=== PATIENT | male | born 1935 | race Caucasian/White ===

== ENCOUNTER 2017-12-20 09:50 | Emergency (ER) | payer OTHER ==
[~2017-12-20] VITALS: Ht 180.3 cm; Wt 80.0 kg
[~2017-12-20 09:50] MED LIST: ASPIRIN; ATENOLOL; LISINORIL; NITROGLYCERIN
[2017-12-20] MEDS ORDERED: ACETAMINOPHEN 325MG TABLET PO ONE (11:30)
[2017-12-20 12:15] VITALS: BP 144/75
== END 2017-12-20 13:07 | disposition home or self-care (01) ==
LOC: ER 10:00
DX: S69.91XA Unspecified injury of right wrist, hand and finger(s), initial encounter (principal); I10 Essential (primary) hypertension; W01.0XXA Fall on same level from slipping, tripping and stumbling without subsequent striking against object, initial encounter; Y93.89 Activity, other specified; Y92.89 Other specified places as the place of occurrence of the external cause; G35 Multiple sclerosis; E78.00 Pure hypercholesterolemia, unspecified; I48.91 Unspecified atrial fibrillation; Z79.82 Long term (current) use of aspirin; Z86.73 Personal history of transient ischemic attack (TIA), and cerebral infarction without residual deficits; Z88.5 Allergy status to narcotic agent
CPT/HCPCS: 73110; 99284

== ENCOUNTER 2017-12-27 15:51 | Emergency (ER) | payer OTHER ==
[~2017-12-27] VITALS: Ht 180.3 cm; Wt 90.0 kg
[2017-12-27 17:55] LABS: BASOPHILS % 0.5 % (0.0-2.0); EOSINOPHILS % 1.4 % (0.0-5.0); HEMATOCRIT. 40.5 % (42.0-52.0); HEMOGLOBIN. 13.8 g/dL (14.0-18.0); LYMPHOCYTES % 16.5 % (20.0-50.0); MEAN CORPUSCULAR HEMOGLOBIN 34.2 pg (28.0-32.0); MEAN CORPUSCULAR VOLUME 100.7 fL (80.0-94.0); MEAN PLATELET VOLUME 9.1 fl (7.4-10.4); MONOCYTES % 10.8 % (2.0-8.0); NEUTROPHILS % 70.8 % (40.0-76.0); PLATELET 251 x1000/uL (130-400); RED BLOOD CELL COUNT 4.02 mill/uL (4.7-6.1); RED CELL DISTRIBUTION WIDTH 16.4 % (11.6-14.6)
[2017-12-27 18:00] LABS: CHLORIDE 107 mEq/L (98-107)
[2017-12-27 18:56] VITALS: BP 158/85
== END 2017-12-27 21:07 | disposition home or self-care (01) ==
LOC: ER 15:51
DX: Z04.3 Encounter for examination and observation following other accident (principal); R41.0 Disorientation, unspecified; W01.0XXA Fall on same level from slipping, tripping and stumbling without subsequent striking against object, initial encounter; E78.00 Pure hypercholesterolemia, unspecified; F03.90 Unspecified dementia, unspecified severity, without behavioral disturbance, psychotic disturbance, mood disturbance, and anxiety; I48.91 Unspecified atrial fibrillation; Z88.5 Allergy status to narcotic agent; Z79.82 Long term (current) use of aspirin; Z86.73 Personal history of transient ischemic attack (TIA), and cerebral infarction without residual deficits
CPT/HCPCS: 36415; 70450; 80053; 82962; 85025; 99285

== ENCOUNTER 2018-04-01 16:10 | Emergency (ER) | payer OTHER ==
[~2018-04-01] VITALS: Ht 182.9 cm; Wt 91.0 kg
[2018-04-01] MEDS ORDERED: SODIUM CHLORIDE 0.9% 1,000 ML IV ONE (16:25)
[2018-04-01 17:19] LABS: BASOPHILS % 0.6 % (0.0-2.0); EOSINOPHILS % 2.1 % (0.0-5.0); HEMATOCRIT. 41.4 % (42.0-52.0); HEMOGLOBIN. 13.8 g/dL (14.0-18.0); MEAN CORPUSCULAR HEMOGLOBIN 34.2 pg (28.0-32.0); MEAN CORPUSCULAR VOLUME 102.6 fL (80.0-94.0); MEAN PLATELET VOLUME 9.3 fl (7.4-10.4); MONOCYTES % 13.8 % (2.0-8.0); NEUTROPHILS % 50.5 % (40.0-76.0); PLATELET 220 x1000/uL (130-400); RED BLOOD CELL COUNT 4.03 mill/uL (4.7-6.1)
[2018-04-01 17:23] LABS: CHLORIDE 111 mEq/L (98-107)
[2018-04-01 17:24] LABS: INR 1.1; PROTHROMBIN TIME 11.7 sec (9.4-11.6)
[2018-04-01 20:12] LABS: CLARITY URINE CLOUDY (CLEAR); COLOR URINE YELLOW (YELLOW); KETONES URINE TRACE (NEGATIVE); LEUKOCYTE ESTERASE URINE TRACE (NEGATIVE); NITRITE URINE NEGATIVE (NEGATIVE); OCCULT BLOOD URINE 1+ (NEGATIVE); PROTEIN URINE 2+ (NEGATIVE); UROBILINOGEN URINE 0.2 E.U./dL (0.2-1.0)
[2018-04-01 21:30] VITALS: BP 135/79
== END 2018-04-01 21:49 | disposition home or self-care (01) ==
LOC: ER 16:10 → ENRESERV 19:58 → CANRESERV 19:58 → CANBEDREQ 20:59 → ER 21:49
DX: R55 Syncope and collapse (principal); X30.XXXA Exposure to excessive natural heat, initial encounter; W18.39XA Other fall on same level, initial encounter; Y93.89 Activity, other specified; Y92.018 Other place in single-family (private) house as the place of occurrence of the external cause; Z88.5 Allergy status to narcotic agent
CPT/HCPCS: 36415; 71045; 80053; 81003; 83605; 83690; 83880; 84484; 85025; 85610; 93005; 96360; 96361; 99285; J7030

== ENCOUNTER 2018-08-31 09:16 | Emergency (ER) | payer OTHER ==
[~2018-08-31] VITALS: Ht 172.7 cm; Wt 85.0 kg
[2018-08-31] MEDS ORDERED: SODIUM CHLORIDE 0.9% 1,000 ML IV ONE (10:14)
[2018-08-31 10:21] LABS: BASOPHILS % 0.5 % (0.0-2.0); EOSINOPHILS % 1.2 % (0.0-5.0); HEMATOCRIT. 43.2 % (42.0-52.0); HEMOGLOBIN. 14.6 g/dL (14.0-18.0); LYMPHOCYTES % 27.7 % (20.0-50.0); MEAN CORPUSCULAR HEMOGLOBIN 35.1 pg (28.0-32.0); MEAN CORPUSCULAR VOLUME 103.9 fL (80.0-94.0); MEAN PLATELET VOLUME 9.6 fl (7.4-10.4); MONOCYTES % 8.1 % (2.0-8.0); NEUTROPHILS % 62.5 % (40.0-76.0); PLATELET 190 x1000/uL (130-400); RED BLOOD CELL COUNT 4.16 mill/uL (4.7-6.1); RED CELL DISTRIBUTION WIDTH 16.1 % (11.6-14.6)
[2018-08-31 10:26] LABS: CHLORIDE 110 mEq/L (98-107); INR 1.1; PROTHROMBIN TIME 10.7 sec (9.1-11.1)
[2018-08-31] MEDS ORDERED: ASPIRIN 325MG TABLET PO ONE (12:30)
[2018-08-31 12:32] LABS: CLARITY URINE CLEAR (CLEAR); COLOR URINE YELLOW (YELLOW); KETONES URINE NEGATIVE (NEGATIVE); LEUKOCYTE ESTERASE URINE 1+ (NEGATIVE); NITRITE URINE NEGATIVE (NEGATIVE); OCCULT BLOOD URINE TRACE (NEGATIVE); PROTEIN URINE 1+ (NEGATIVE); SPECIFIC GRAVITY URINE 1.011 (1.005-1.030); UROBILINOGEN URINE 0.2 E.U./dL (0.2-1.0)
[2018-08-31] MEDS ORDERED: ONDANSETRON HCL 4MG/2ML INJ IV ONE (13:30)
[2018-08-31 14:03] VITALS: BP 155/74
== END 2018-08-31 15:02 | disposition short-term general hospital (02) ==
LOC: ER 09:16 → CANBEDREQ 20:21
DX: R55 Syncope and collapse (principal); N28.9 Disorder of kidney and ureter, unspecified; I25.10 Atherosclerotic heart disease of native coronary artery without angina pectoris; G35 Multiple sclerosis; I25.2 Old myocardial infarction; E87.8 Other disorders of electrolyte and fluid balance, not elsewhere classified; E78.00 Pure hypercholesterolemia, unspecified; F03.90 Unspecified dementia, unspecified severity, without behavioral disturbance, psychotic disturbance, mood disturbance, and anxiety; I11.9 Hypertensive heart disease without heart failure; Z90.49 Acquired absence of other specified parts of digestive tract; Z88.5 Allergy status to narcotic agent; Z79.01 Long term (current) use of anticoagulants
CPT/HCPCS: 36415; 70450; 71045; 74176; 80053; 81003; 83605; 84484; 85025; 85610; 93005; 96361; 96374; 99285; J2405; J7030

== ENCOUNTER 2019-04-21 20:50 | Emergency (ER) | payer OTHER ==
[~2019-04-21] VITALS: Ht 185.4 cm; Wt 86.0 kg
[2019-04-21] MEDS ORDERED: SODIUM CHLORIDE 0.9% 1,000 ML IV ONE (22:21)
[2019-04-21 23:44] LABS: BASOPHILS % 0.6 % (0.0-2.0); EOSINOPHILS % 2.1 % (0.0-5.0); HEMATOCRIT. 41.3 % (42.0-52.0); HEMOGLOBIN. 14.1 g/dL (14.0-18.0); LYMPHOCYTES % 38.4 % (20.0-50.0); MEAN CORPUSCULAR HEMOGLOBIN 35.4 pg (28.0-32.0); MEAN CORPUSCULAR VOLUME 103.4 fL (80.0-94.0); MEAN PLATELET VOLUME 9.3 fl (7.4-10.4); NEUTROPHILS % 47.9 % (40.0-76.0); PLATELET 189 x1000/uL (130-400); RED BLOOD CELL COUNT 3.99 mill/uL (4.7-6.1)
[2019-04-21 23:48] LABS: CHLORIDE 108 mEq/L (98-107)
[2019-04-21 23:51] LABS: INR 1.1; PARTIAL THROMBOPLASTIN TIME 31.8 sec (23.4-31.0); PROTHROMBIN TIME 11.3 sec (9.6-11.0)
[2019-04-22] MEDS ORDERED: ASPIRIN 81MG TABLET PO ONE (01:15)
[2019-04-22 01:49] VITALS: BP 166/78
[2019-04-22 01:56] LABS: CLARITY URINE CLEAR (CLEAR); COLOR URINE YELLOW (YELLOW); KETONES URINE NEGATIVE (NEGATIVE); LEUKOCYTE ESTERASE URINE NEGATIVE (NEGATIVE); NITRITE URINE NEGATIVE (NEGATIVE); OCCULT BLOOD URINE NEGATIVE (NEGATIVE); PH URINE 6.5 (4.5-8.0); PROTEIN URINE TRACE (NEGATIVE); SPECIFIC GRAVITY URINE 1.008 (1.005-1.030); UROBILINOGEN URINE 0.2 E.U./dL (0.2-1.0)
== END 2019-04-22 03:00 | disposition short-term general hospital (02) ==
LOC: ER 20:50
DX: E86.0 Dehydration (principal); N28.9 Disorder of kidney and ureter, unspecified; R53.1 Weakness; R42 Dizziness and giddiness; I11.9 Hypertensive heart disease without heart failure; I25.2 Old myocardial infarction; E78.5 Hyperlipidemia, unspecified; E78.00 Pure hypercholesterolemia, unspecified; G35 Multiple sclerosis; Z90.49 Acquired absence of other specified parts of digestive tract; Z88.5 Allergy status to narcotic agent; Z79.82 Long term (current) use of aspirin; Z79.899 Other long term (current) drug therapy
CPT/HCPCS: 36415; 70450; 71045; 80053; 81003; 83880; 84484; 85025; 85610; 85730; 87086; 93005; 96360; 96361; 99285; J7030

== ENCOUNTER 2020-09-09 11:35 | Inpatient (IN) | payer OTHER ==
[2020-09-09] VITALS (23 sets, daily range): BP systolic 127–167; BP diastolic 50–100
[~2020-09-09] VITALS: Ht 182.9 cm; Wt 93.5 kg
[2020-09-09 12:44] LABS: BASOPHILS % 0.8 % (0.0-2.0); EOSINOPHILS % 2.2 % (0.0-5.0); LYMPHOCYTES % 36.2 % (20.0-50.0); MEAN CORPUSCULAR HEMOGLOBIN 34.1 pg (28.0-32.0); MEAN CORPUSCULAR VOLUME 102.5 fL (80.0-94.0); MEAN PLATELET VOLUME 9.3 fl (7.4-10.4); MONOCYTES % 8.1 % (2.0-8.0); NEUTROPHILS % 52.7 % (40.0-76.0); PLATELET 212 x1000/uL (130-400); RED BLOOD CELL COUNT 3.81 mill/uL (4.7-6.1); RED CELL DISTRIBUTION WIDTH 15.7 % (11.6-14.6)
[2020-09-09 12:53] LABS: CHLORIDE 109 mEq/L (98-107)
[2020-09-09 12:55] LABS: INR 1.1; PROTHROMBIN TIME 11.9 sec (9.6-11.0)
[2020-09-09 12:58] LABS: ETHANOL BLOOD < 10 mg/dL
[2020-09-09 13:05] LABS: LDL CHOLESTEROL 56 mg/dL (5-100)
[2020-09-09] MEDS ORDERED: ALTEPLASE 100MG/VIAL IV ONE (13:42)
[2020-09-09] MEDS ORDERED: ALTEPLASE IV ONE (13:43)
[2020-09-09] MEDS ORDERED: CONTAINER EMPTY IV ONE (13:43)
[2020-09-09] MEDS ORDERED: *NO ASPIRIN X 24 HOURS XX SCH (13:45)
[2020-09-09] MEDS ORDERED: MAGNESIUM/ALUMINUM HYDROXIDE/SIMETHICONE 30ML UDC PO PRN (15:30)
[2020-09-09] MEDS ORDERED: IPRATROPIUM/ALBUTEROL 0.5-3(2.5)MG/3ML NEB HHN PRN (15:30)
[2020-09-09] MEDS ORDERED: DOCUSATE SODIUM 100MG CAPSULE PO PRN (15:30)
[2020-09-09] MEDS ORDERED: MORPHINE SULFATE 2 MG/ML CPJ (NOT FOR IM USE) IV PRN (15:30)
[2020-09-09] MEDS ORDERED: LORAZEPAM 2MG/ML CPJ IV PRN (15:30)
[2020-09-09] MEDS ORDERED: HYDROCODONE/ACETAMINOPHEN 5/325MG TABLET PO PRN (15:30)
[2020-09-09] MEDS ORDERED: ONDANSETRON HCL 4MG/2ML INJ IV PRN (15:30)
[2020-09-09] MEDS ORDERED: CLONIDINE 0.1MG TABLET PO PRN (15:30)
[2020-09-09] MEDS ORDERED: DEXT 5%/0.45% NACL 1000ML 1,000 ML IV SCH (16:00)
[2020-09-09] MEDS: HYDRALAZINE 20MG/ML VIAL IV PRN (17:33)
[2020-09-09] MEDS: SODIUM CHLORIDE 0.9% INJ 3ML FLUSH IVF SCH (18:33)
[2020-09-09] MEDS ORDERED: DEXTROSE 50% WATER 50ML SYRINGE IV PRN (18:45)
[2020-09-09] MEDS ORDERED: BLOOD SUGAR DIAGNOSTIC STRIP TEST SCH (18:45)
[2020-09-09] MEDS ORDERED: LABETALOL HCL 20MG/4ML CARPUJECT IV ONE (18:45)
[2020-09-09] MEDS ORDERED: LABETALOL 5MG/ML SYR 20 MG/4 ML SYRINGE IV PRN (19:15)
[2020-09-09] MEDS: INSULIN LISPRO 100 UNITS/ML SUBCUT SCH (20:00)
[2020-09-09] MEDS: BLOOD SUGAR DIAGNOSTIC STRIP TEST SCH (20:00)
[2020-09-09 23:26] LABS: CREATINE KINASE 73 IU/L (39-308)
[2020-09-09 23:27] LABS: CREATINE KINASE MB FRACTION 1.3 ng/mL (0.5-3.6)
[2020-09-10] VITALS (37 sets, daily range): BP systolic 104–182; BP diastolic 32–97
[2020-09-10 05:57] LABS: CHLORIDE 109 mEq/L (98-107)
[2020-09-10] MEDS: INSULIN LISPRO 100 UNITS/ML SUBCUT SCH ×5 (06:00→23:52)
[2020-09-10] MEDS: BLOOD SUGAR DIAGNOSTIC STRIP TEST SCH ×5 (06:00→23:52)
[2020-09-10] MEDS: SODIUM CHLORIDE 0.9% INJ 3ML FLUSH IVF SCH ×3 (06:00→22:00)
[2020-09-10 06:02] LABS: BASOPHILS % 0.2 % (0.0-2.0); EOSINOPHILS % 0.2 % (0.0-5.0); HEMATOCRIT. 42.3 % (42.0-52.0); HEMOGLOBIN. 14.1 g/dL (14.0-18.0); LYMPHOCYTES % 12.4 % (20.0-50.0); MEAN CORPUSCULAR VOLUME 102.4 fL (80.0-94.0); MEAN PLATELET VOLUME 9.7 fl (7.4-10.4); MONOCYTES % 9.4 % (2.0-8.0); NEUTROPHILS % 77.8 % (40.0-76.0); PLATELET 220 x1000/uL (130-400); RED BLOOD CELL COUNT 4.14 mill/uL (4.7-6.1); RED CELL DISTRIBUTION WIDTH 15.9 % (11.6-14.6)
[2020-09-10 06:08] LABS: LDL CHOLESTEROL 62 mg/dL (5-100)
[2020-09-10 06:09] LABS: CREATINE KINASE 141 IU/L (39-308); HDL CHOLESTEROL 29 mg/dL (40-59)
[2020-09-10 06:13] LABS: CREATINE KINASE MB FRACTION 1.5 ng/mL (0.5-3.6)
[2020-09-10] MEDS: PANTOPRAZOLE SODIUM 40 MG/VIAL IV SCH (08:38)
[2020-09-10] MEDS: SODIUM CHLORIDE 0.9% 1,000 ML IV SCH ×2 (09:34→23:13)
[2020-09-10] MEDS ORDERED: SODIUM POLYSTYRENE SULFONATE 15 G/60 ML BOT PO NR (11:00)
[2020-09-10 12:59] LABS: T4 FREE 0.8 ng/dL (0.76-1.46)
[2020-09-10 13:17] LABS: CREATINE KINASE 88 IU/L (39-308)
[2020-09-10 16:08] LABS: CLARITY URINE CLOUDY (CLEAR); COLOR URINE YELLOW (YELLOW); KETONES URINE NEGATIVE (NEGATIVE); LEUKOCYTE ESTERASE URINE 1+ (NEGATIVE); NITRITE URINE NEGATIVE (NEGATIVE); OCCULT BLOOD URINE TRACE (NEGATIVE); PROTEIN URINE 3+ (NEGATIVE); SPECIFIC GRAVITY URINE 1.033 (1.005-1.030); UROBILINOGEN URINE 0.2 E.U./dL (0.2-1.0)
[2020-09-10 16:17] LABS: CHLORIDE 111 mEq/L (98-107)
[2020-09-10 16:26] LABS: CREATINE KINASE 85 IU/L (39-308)
[2020-09-10 16:27] LABS: CREATINE KINASE MB FRACTION 1.4 ng/mL (0.5-3.6)
[2020-09-10] MEDS: HYDRALAZINE 20MG/ML VIAL IV PRN ×2 (16:36→23:13)
[2020-09-10] MEDS: NYSTATIN POWDER 15GM TOP SCH (21:19)
[2020-09-10 23:35] LABS: CREATINE KINASE 123 IU/L (39-308)
[2020-09-11] VITALS (14 sets, daily range): BP systolic 73–161; BP diastolic 24–97
[2020-09-11] MEDS: INSULIN LISPRO 100 UNITS/ML SUBCUT SCH ×4 (06:00→23:31)
[2020-09-11] MEDS: BLOOD SUGAR DIAGNOSTIC STRIP TEST SCH ×4 (06:07→23:31)
[2020-09-11] MEDS: SODIUM CHLORIDE 0.9% INJ 3ML FLUSH IVF SCH ×3 (06:07→21:20)
[2020-09-11] MEDS: IPRATROPIUM/ALBUTEROL 0.5-3(2.5)MG/3ML NEB HHN SCH ×3 (07:45→20:48)
[2020-09-11] MEDS: NYSTATIN POWDER 15GM TOP SCH ×2 (08:57→21:20)
[2020-09-11] MEDS: PANTOPRAZOLE SODIUM 40 MG/VIAL IV SCH (08:57)
[2020-09-11 12:33] LABS: HEMATOCRIT 37.8 % (42.0-52.0); HEMOGLOBIN 12.4 g/dL (14.0-18.0); MEAN CORPUSCULAR HEMOGLOBIN 33.7 pg (28.0-32.0); MEAN CORPUSCULAR VOLUME 102.9 fL (80.0-94.0); PLATELET 186 x1000/uL (130-400); RED BLOOD CELL COUNT 3.67 mill/uL (4.7-6.1); RED CELL DISTRIBUTION WIDTH 16.1 % (11.6-14.6)
[2020-09-11 12:44] LABS: CREATINE KINASE MB FRACTION 26.9 ng/mL (0.5-3.6)
[2020-09-11] MEDS: SODIUM CHLORIDE 0.9% 1,000 ML IV SCH (12:50)
[2020-09-11] MEDS ORDERED: ATEN-42 PO (14:06)
[2020-09-11] MEDS ORDERED: ALLO100T MT (14:06)
[2020-09-11] MEDS ORDERED: ATOR10TA69 PO (14:06)
[2020-09-11] MEDS: CLOPIDOGREL 75MG TABLET PO SCH (14:59)
[2020-09-11 17:07] LABS: ANTI-NUCLEAR ANTIBODIES DIRECT Negative (Negative)
[2020-09-11 19:04] LABS: CREATINE KINASE MB FRACTION 16.4 ng/mL (0.5-3.6)
[2020-09-12] VITALS (12 sets, daily range): BP systolic 111–159; BP diastolic 51–87
[2020-09-12] MEDS: SODIUM CHLORIDE 0.9% 1,000 ML IV SCH ×2 (02:02→14:21)
[2020-09-12] MEDS: IPRATROPIUM/ALBUTEROL 0.5-3(2.5)MG/3ML NEB HHN SCH ×4 (02:12→20:15)
[2020-09-12] MEDS: INSULIN LISPRO 100 UNITS/ML SUBCUT SCH ×3 (05:32→17:04)
[2020-09-12] MEDS: SODIUM CHLORIDE 0.9% INJ 3ML FLUSH IVF SCH ×3 (05:32→21:56)
[2020-09-12] MEDS: BLOOD SUGAR DIAGNOSTIC STRIP TEST SCH ×3 (05:32→17:02)
[2020-09-12] MEDS: ASPIRIN 81MG TABLET PO SCH (09:52)
[2020-09-12] MEDS: FAMOTIDINE 20MG/2ML VIAL IV SCH (09:52)
[2020-09-12] MEDS: CLOPIDOGREL 75MG TABLET PO SCH (09:52)
[2020-09-12] MEDS: NYSTATIN POWDER 15GM TOP SCH ×2 (09:54→20:57)
[2020-09-12 16:41] LABS: BG BASE EXCESS -5.8 mmol/L (-2.0-2.0); BG CARBOXYHEMOGLOBIN 0.1 % (0.5-1.5); BG DEOXYHEMOGLOBIN 6.5 % (0.0-5.0); BG HCO3 ACT 16.4 mmol/L (22.0-26.0); BG METHEMOGLOBIN 0.1 % (0.0-1.5); BG OXYGEN SATURATION 93.5 % (92.0-98.5); BG OXYHEMOGLOBIN 93.3 % (94.0-97.0); BG PCO2 23.6 mmHg (35.0-45.0); BG PH 7.459 (7.350-7.450); BG PO2 64.7 mmHg (75.0-100.0); BG SAMPLE SITE RIGHT RADIAL; BG TOTAL HEMOGLOBIN 11.7 g/dL (12.0-18.0); BG VENT MODE ROOM AIR
[2020-09-12 16:47] LABS: BASOPHILS % 0.6 % (0.0-2.0); EOSINOPHILS % 2.9 % (0.0-5.0); HEMOGLOBIN. 12.1 g/dL (14.0-18.0); LYMPHOCYTES % 17.1 % (20.0-50.0); MEAN CORPUSCULAR HEMOGLOBIN 35.2 pg (28.0-32.0); MEAN CORPUSCULAR VOLUME 101.5 fL (80.0-94.0); MEAN PLATELET VOLUME 9.8 fl (7.4-10.4); MONOCYTES % 7.5 % (2.0-8.0); NEUTROPHILS % 71.9 % (40.0-76.0); PLATELET 194 x1000/uL (130-400); RED BLOOD CELL COUNT 3.44 mill/uL (4.7-6.1); RED CELL DISTRIBUTION WIDTH 15.9 % (11.6-14.6)
[2020-09-12] MEDS: METOPROLOL TARTRATE 50MG TABLET PO SCH (20:57)
[2020-09-12] MEDS: ATORVASTATIN CALCIUM 20MG TABLET PO SCH (20:57)
[2020-09-13] VITALS (15 sets, daily range): BP systolic 108–150; BP diastolic 43–92
[2020-09-13] MEDS: BLOOD SUGAR DIAGNOSTIC STRIP TEST SCH ×4 (00:08→17:49)
[2020-09-13] MEDS: IPRATROPIUM/ALBUTEROL 0.5-3(2.5)MG/3ML NEB HHN SCH ×4 (02:54→20:10)
[2020-09-13] MEDS: SODIUM CHLORIDE 0.9% 1,000 ML IV SCH ×2 (03:42→18:06)
[2020-09-13] MEDS: INSULIN LISPRO 100 UNITS/ML SUBCUT SCH ×4 (05:41→17:49)
[2020-09-13] MEDS: SODIUM CHLORIDE 0.9% INJ 3ML FLUSH IVF SCH ×3 (05:41→21:43)
[2020-09-13 07:37] LABS: BASOPHILS % 0.6 % (0.0-2.0); EOSINOPHILS % 3.8 % (0.0-5.0); HEMATOCRIT. 33.6 % (42.0-52.0); HEMOGLOBIN. 11.2 g/dL (14.0-18.0); LYMPHOCYTES % 14.4 % (20.0-50.0); MEAN CORPUSCULAR VOLUME 102.2 fL (80.0-94.0); MONOCYTES % 11.2 % (2.0-8.0); PLATELET 186 x1000/uL (130-400); RED BLOOD CELL COUNT 3.29 mill/uL (4.7-6.1)
[2020-09-13] MEDS ORDERED: ENOXAPARIN 100MG/ML SYR SUBCUT SCH (09:00)
[2020-09-13] MEDS: ASPIRIN 81MG TABLET PO SCH (09:41)
[2020-09-13] MEDS: METOPROLOL TARTRATE 50MG TABLET PO SCH ×2 (09:41→21:42)
[2020-09-13] MEDS: FAMOTIDINE 20MG/2ML VIAL IV SCH (09:41)
[2020-09-13] MEDS: CLOPIDOGREL 75MG TABLET PO SCH (09:42)
[2020-09-13] MEDS: NYSTATIN POWDER 15GM TOP SCH ×2 (09:43→21:43)
[2020-09-13 16:55] LABS: CREATINE KINASE MB FRACTION 25.2 ng/mL (0.5-3.6)
[2020-09-13] MEDS: ATORVASTATIN CALCIUM 20MG TABLET PO SCH (21:42)
[2020-09-14] VITALS (16 sets, daily range): BP systolic 98–160; BP diastolic 47–98
[2020-09-14 00:05] LABS: CREATINE KINASE MB FRACTION 17.2 ng/mL (0.5-3.6)
[2020-09-14] MEDS: IPRATROPIUM/ALBUTEROL 0.5-3(2.5)MG/3ML NEB HHN SCH ×3 (00:55→20:01)
[2020-09-14] MEDS: BLOOD SUGAR DIAGNOSTIC STRIP TEST SCH ×4 (05:35→17:53)
[2020-09-14] MEDS: SODIUM CHLORIDE 0.9% INJ 3ML FLUSH IVF SCH ×3 (05:38→21:55)
[2020-09-14] MEDS: INSULIN LISPRO 100 UNITS/ML SUBCUT SCH ×4 (05:38→17:53)
[2020-09-14] MEDS: SODIUM CHLORIDE 0.9% 1,000 ML IV SCH ×2 (05:39→20:15)
[2020-09-14 06:51] LABS: BASOPHILS % 0.7 % (0.0-2.0); EOSINOPHILS % 3.9 % (0.0-5.0); HEMATOCRIT. 34.1 % (42.0-52.0); HEMOGLOBIN. 11.3 g/dL (14.0-18.0); LYMPHOCYTES % 18.9 % (20.0-50.0); MEAN CORPUSCULAR HEMOGLOBIN 34.3 pg (28.0-32.0); MEAN CORPUSCULAR VOLUME 103.3 fL (80.0-94.0); MEAN PLATELET VOLUME 10.1 fl (7.4-10.4); MONOCYTES % 10.2 % (2.0-8.0); NEUTROPHILS % 66.3 % (40.0-76.0); PLATELET 205 x1000/uL (130-400); RED CELL DISTRIBUTION WIDTH 15.9 % (11.6-14.6)
[2020-09-14 07:16] LABS: CREATINE KINASE MB FRACTION 20.8 ng/mL (0.5-3.6)
[2020-09-14] MEDS: CLOPIDOGREL 75MG TABLET PO SCH (09:00)
[2020-09-14] MEDS: ASPIRIN 81MG TABLET PO SCH (09:00)
[2020-09-14] MEDS ORDERED: LIDOCAINE HCL 1% 20ML VIAL (Pyxis) INJ ONE ×2 (09:07→11:45)
[2020-09-14] MEDS: FAMOTIDINE 20MG/2ML VIAL IV SCH (10:24)
[2020-09-14] MEDS: NYSTATIN POWDER 15GM TOP SCH ×2 (10:26→21:55)
[2020-09-14] MEDS ORDERED: FENTANYL CITRATE/PF 50MCG/ML 2ML VIAL ONE (11:45)
[2020-09-14] MEDS ORDERED: IODIXANOL 320MG/ML 100 ML BOTTLE IV ONE (11:46)
[2020-09-14] MEDS ORDERED: CLOPIDOGREL 75MG TABLET PO SCH (13:00)
[2020-09-14] MEDS ORDERED: LEVOFLOXACIN 500MG PREMIX 100 ML IV SCH (13:00)
[2020-09-14] MEDS ORDERED: ACETAMINOPHEN 325MG TABLET PO PRN (13:00)
[2020-09-14] MEDS ORDERED: ATROPINE SULFATE 1MG/10ML SYR IV PRN (13:00)
[2020-09-14] MEDS: ACETAMINOPHEN 325MG TABLET PO PRN (16:13)
[2020-09-14] MEDS: DIPHENHYDRAMINE 50MG/ML VIAL IV PRN (20:08)
[2020-09-14] MEDS: ATORVASTATIN CALCIUM 20MG TABLET PO SCH (21:54)
[2020-09-15] VITALS (12 sets, daily range): BP systolic 115–155; BP diastolic 64–84
[2020-09-15] MEDS: IPRATROPIUM/ALBUTEROL 0.5-3(2.5)MG/3ML NEB HHN SCH ×2 (01:42→13:25)
[2020-09-15] MEDS: DIPHENHYDRAMINE 50MG/ML VIAL IV PRN (04:31)
[2020-09-15] MEDS: INSULIN LISPRO 100 UNITS/ML SUBCUT SCH ×4 (06:00→17:13)
[2020-09-15] MEDS: SODIUM CHLORIDE 0.9% INJ 3ML FLUSH IVF SCH ×3 (06:10→22:42)
[2020-09-15] MEDS: BLOOD SUGAR DIAGNOSTIC STRIP TEST SCH ×4 (06:10→17:13)
[2020-09-15 07:49] LABS: BASOPHILS % 0.5 % (0.0-2.0); EOSINOPHILS % 2.4 % (0.0-5.0); HEMATOCRIT. 29.7 % (42.0-52.0); HEMOGLOBIN. 10.3 g/dL (14.0-18.0); LYMPHOCYTES % 11.8 % (20.0-50.0); MEAN CORPUSCULAR HEMOGLOBIN 35.5 pg (28.0-32.0); MEAN CORPUSCULAR VOLUME 101.9 fL (80.0-94.0); MONOCYTES % 14.5 % (2.0-8.0); NEUTROPHILS % 70.8 % (40.0-76.0); PLATELET 190 x1000/uL (130-400); RED BLOOD CELL COUNT 2.92 mill/uL (4.7-6.1); RED CELL DISTRIBUTION WIDTH 16.1 % (11.6-14.6)
[2020-09-15] MEDS: ASPIRIN 325MG TABLET PO SCH (08:37)
[2020-09-15] MEDS: FAMOTIDINE 20MG/2ML VIAL IV SCH (08:37)
[2020-09-15] MEDS: CLOPIDOGREL 75MG TABLET PO SCH (08:38)
[2020-09-15] MEDS: NYSTATIN POWDER 15GM TOP SCH ×2 (08:38→22:44)
[2020-09-15] MEDS: SODIUM CHLORIDE 0.9% 1,000 ML IV SCH (08:38)
[2020-09-15] MEDS: LEVOFLOXACIN 250MG PREMIX 50 ML IV SCH (13:00)
[2020-09-15] MEDS ORDERED: CARVEDILOL 3.125 MG TABLET PO SCH (14:00)
[2020-09-15] MEDS: CARVEDILOL 6.25 MG TABLET PO SCH ×2 (14:53→22:45)
[2020-09-15] MEDS: ATORVASTATIN CALCIUM 20MG TABLET PO SCH (22:44)
[2020-09-16] VITALS (12 sets, daily range): BP systolic 89–161; BP diastolic 50–83
[2020-09-16] MEDS: INSULIN LISPRO 100 UNITS/ML SUBCUT SCH ×4 (06:00→16:58)
[2020-09-16] MEDS: SODIUM CHLORIDE 0.9% INJ 3ML FLUSH IVF SCH ×3 (06:14→22:16)
[2020-09-16 06:24] LABS: BASOPHILS % 0.5 % (0.0-2.0); HEMATOCRIT. 29.2 % (42.0-52.0); LYMPHOCYTES % 12.2 % (20.0-50.0); MEAN CORPUSCULAR VOLUME 101.7 fL (80.0-94.0); MEAN PLATELET VOLUME 9.8 fl (7.4-10.4); MONOCYTES % 11.1 % (2.0-8.0); NEUTROPHILS % 70.2 % (40.0-76.0); PLATELET 196 x1000/uL (130-400); RED BLOOD CELL COUNT 2.87 mill/uL (4.7-6.1); RED CELL DISTRIBUTION WIDTH 15.8 % (11.6-14.6)
[2020-09-16] MEDS: BLOOD SUGAR DIAGNOSTIC STRIP TEST SCH ×5 (06:48→23:50)
[2020-09-16] MEDS: CLOPIDOGREL 75MG TABLET PO SCH (09:05)
[2020-09-16] MEDS: FAMOTIDINE 20MG/2ML VIAL IV SCH (09:05)
[2020-09-16] MEDS: NYSTATIN POWDER 15GM TOP SCH ×2 (09:06→22:16)
[2020-09-16] MEDS: ASPIRIN 325MG TABLET PO SCH (09:06)
[2020-09-16] MEDS: CARVEDILOL 6.25 MG TABLET PO SCH ×2 (09:06→22:15)
[2020-09-16] MEDS: IPRATROPIUM/ALBUTEROL 0.5-3(2.5)MG/3ML NEB HHN SCH ×3 (09:29→20:35)
[2020-09-16] MEDS ORDERED: FUROSEMIDE 40MG/4ML VIAL IVP NR (09:30)
[2020-09-16 12:00] LABS: BG CARBOXYHEMOGLOBIN 0.3 % (0.5-1.5); BG FRACTION INSPIRED OXYGEN 75; BG HCO3 ACT 19.4 mmol/L (22.0-26.0); BG METHEMOGLOBIN 0.3 % (0.0-1.5); BG OXYHEMOGLOBIN 93.4 % (94.0-97.0); BG PCO2 29.9 mmHg (35.0-45.0); BG PO2 66.5 mmHg (75.0-100.0); BG SAMPLE SITE LEFT BRACHIAL; BG TOTAL HEMOGLOBIN 10.4 g/dL (12.0-18.0); BG VENT MODE MASK - SIMPLE
[2020-09-16] MEDS: LEVOFLOXACIN 250MG PREMIX 50 ML IV SCH (12:27)
[2020-09-16] MEDS: ATORVASTATIN CALCIUM 20MG TABLET PO SCH (22:15)
[2020-09-17] VITALS (13 sets, daily range): BP systolic 108–149; BP diastolic 39–98
[2020-09-17] MEDS: IPRATROPIUM/ALBUTEROL 0.5-3(2.5)MG/3ML NEB HHN SCH ×4 (01:52→21:44)
[2020-09-17] MEDS: DIPHENHYDRAMINE 50MG/ML VIAL IV PRN (02:00)
[2020-09-17] MEDS: INSULIN LISPRO 100 UNITS/ML SUBCUT SCH ×4 (06:00→18:00)
[2020-09-17] MEDS: SODIUM CHLORIDE 0.9% INJ 3ML FLUSH IVF SCH ×3 (06:24→23:25)
[2020-09-17] MEDS: BLOOD SUGAR DIAGNOSTIC STRIP TEST SCH ×4 (06:32→23:13)
[2020-09-17 07:35] LABS: BASOPHILS % 0.5 % (0.0-2.0); EOSINOPHILS % 7.1 % (0.0-5.0); HEMATOCRIT. 29.5 % (42.0-52.0); HEMOGLOBIN. 10.2 g/dL (14.0-18.0); LYMPHOCYTES % 17.1 % (20.0-50.0); MEAN CORPUSCULAR VOLUME 101.7 fL (80.0-94.0); MEAN PLATELET VOLUME 9.7 fl (7.4-10.4); MONOCYTES % 9.7 % (2.0-8.0); NEUTROPHILS % 65.6 % (40.0-76.0); PLATELET 200 x1000/uL (130-400)
[2020-09-17] MEDS: CLOPIDOGREL 75MG TABLET PO SCH (09:00)
[2020-09-17] MEDS: ASPIRIN 325MG TABLET PO SCH (09:00)
[2020-09-17] MEDS: FAMOTIDINE 20MG/2ML VIAL IV SCH (09:00)
[2020-09-17] MEDS: CARVEDILOL 6.25 MG TABLET PO SCH ×2 (09:00→23:25)
[2020-09-17] MEDS ORDERED: POTASSIUM CHLORIDE 20MEQ/PACKET PO SCH (09:00)
[2020-09-17 11:58] LABS: BG BASE EXCESS -3.1 mmol/L (-2.0-2.0); BG CARBOXYHEMOGLOBIN 0.3 % (0.5-1.5); BG DEOXYHEMOGLOBIN 8.1 % (0.0-5.0); BG FRACTION INSPIRED OXYGEN 60; BG HCO3 ACT 20.3 mmol/L (22.0-26.0); BG METHEMOGLOBIN 0.3 % (0.0-1.5); BG OXYGEN SATURATION 91.9 % (92.0-98.5); BG OXYHEMOGLOBIN 91.3 % (94.0-97.0); BG PCO2 30.7 mmHg (35.0-45.0); BG PH 7.438 (7.350-7.450); BG PO2 61.4 mmHg (75.0-100.0); BG SAMPLE SITE LEFT BRACHIAL; BG TOTAL HEMOGLOBIN 11.1 g/dL (12.0-18.0); BG VENT MODE MASK - SIMPLE
[2020-09-17] MEDS: NYSTATIN POWDER 15GM TOP SCH ×2 (12:47→23:26)
[2020-09-17] MEDS: LEVOFLOXACIN 250MG PREMIX 50 ML IV SCH (12:47)
[2020-09-17] MEDS: LOSARTAN POTASSIUM 25 MG TABLET PO SCH (12:47)
[2020-09-17] MEDS: ATORVASTATIN CALCIUM 20MG TABLET PO SCH (23:26)
[2020-09-18] VITALS (13 sets, daily range): BP systolic 90–148; BP diastolic 34–92
[2020-09-18] MEDS: IPRATROPIUM/ALBUTEROL 0.5-3(2.5)MG/3ML NEB HHN SCH ×3 (02:26→21:44)
[2020-09-18] MEDS: INSULIN LISPRO 100 UNITS/ML SUBCUT SCH ×4 (06:00→18:00)
[2020-09-18] MEDS: BLOOD SUGAR DIAGNOSTIC STRIP TEST SCH ×3 (06:29→18:13)
[2020-09-18 06:34] LABS: BASOPHILS % 0.6 % (0.0-2.0); EOSINOPHILS % 7.2 % (0.0-5.0); HEMATOCRIT. 31.9 % (42.0-52.0); HEMOGLOBIN. 10.6 g/dL (14.0-18.0); MEAN CORPUSCULAR HEMOGLOBIN 34.1 pg (28.0-32.0); MEAN CORPUSCULAR VOLUME 102.7 fL (80.0-94.0); MEAN PLATELET VOLUME 9.7 fl (7.4-10.4); MONOCYTES % 13.1 % (2.0-8.0); NEUTROPHILS % 63.1 % (40.0-76.0); PLATELET 232 x1000/uL (130-400); RED BLOOD CELL COUNT 3.11 mill/uL (4.7-6.1); RED CELL DISTRIBUTION WIDTH 15.9 % (11.6-14.6)
[2020-09-18 06:40] LABS: PHOSPHORUS 3.5 mg/dL (2.5-4.9)
[2020-09-18] MEDS: SODIUM CHLORIDE 0.9% INJ 3ML FLUSH IVF SCH ×3 (06:44→21:52)
[2020-09-18] MEDS: LOSARTAN POTASSIUM 25 MG TABLET PO SCH (10:17)
[2020-09-18] MEDS: FAMOTIDINE 20MG/2ML VIAL IV SCH (10:17)
[2020-09-18] MEDS: CLOPIDOGREL 75MG TABLET PO SCH (10:17)
[2020-09-18] MEDS: CARVEDILOL 6.25 MG TABLET PO SCH ×2 (10:17→21:52)
[2020-09-18] MEDS: ASPIRIN 325MG TABLET PO SCH (10:18)
[2020-09-18] MEDS: NYSTATIN POWDER 15GM TOP SCH ×2 (10:18→21:53)
[2020-09-18] MEDS: GUAIFENESIN 200MG/10ML SUGAR FREE UDC PO PRN ×2 (13:59→22:19)
[2020-09-18] MEDS: LEVOFLOXACIN 250MG PREMIX 50 ML IV SCH (13:59)
[2020-09-18] MEDS: ATORVASTATIN CALCIUM 20MG TABLET PO SCH (21:51)
[2020-09-19] VITALS (10 sets, daily range): BP systolic 93–159; BP diastolic 57–76
[2020-09-19] MEDS: BLOOD SUGAR DIAGNOSTIC STRIP TEST SCH ×5 (00:32→23:36)
[2020-09-19] MEDS: IPRATROPIUM/ALBUTEROL 0.5-3(2.5)MG/3ML NEB HHN SCH ×2 (01:08→08:00)
[2020-09-19] MEDS: DIPHENHYDRAMINE 50MG/ML VIAL IV PRN ×2 (01:33→21:44)
[2020-09-19] MEDS: INSULIN LISPRO 100 UNITS/ML SUBCUT SCH ×5 (06:00→23:38)
[2020-09-19] MEDS: SODIUM CHLORIDE 0.9% INJ 3ML FLUSH IVF SCH ×3 (06:22→21:52)
[2020-09-19 07:30] LABS: BASOPHILS % 0.9 % (0.0-2.0); HEMATOCRIT. 32.1 % (42.0-52.0); LYMPHOCYTES % 15.7 % (20.0-50.0); MEAN CORPUSCULAR HEMOGLOBIN 34.8 pg (28.0-32.0); MEAN CORPUSCULAR VOLUME 101.9 fL (80.0-94.0); MEAN PLATELET VOLUME 9.7 fl (7.4-10.4); MONOCYTES % 10.6 % (2.0-8.0); NEUTROPHILS % 66.8 % (40.0-76.0); PLATELET 242 x1000/uL (130-400); RED BLOOD CELL COUNT 3.15 mill/uL (4.7-6.1); RED CELL DISTRIBUTION WIDTH 15.7 % (11.6-14.6)
[2020-09-19] MEDS: FAMOTIDINE 20MG/2ML VIAL IV SCH (09:11)
[2020-09-19] MEDS: ASPIRIN 325MG TABLET PO SCH (09:11)
[2020-09-19] MEDS: LOSARTAN POTASSIUM 25 MG TABLET PO SCH (09:11)
[2020-09-19] MEDS: CARVEDILOL 6.25 MG TABLET PO SCH ×2 (09:11→21:00)
[2020-09-19] MEDS: CLOPIDOGREL 75MG TABLET PO SCH (09:11)
[2020-09-19] MEDS: NYSTATIN POWDER 15GM TOP SCH ×2 (09:12→21:49)
[2020-09-19] MEDS: ATORVASTATIN CALCIUM 20MG TABLET PO SCH (21:44)
[2020-09-19] MEDS: ACETAMINOPHEN 325MG TABLET PO PRN (23:47)
[2020-09-20] VITALS (9 sets, daily range): BP systolic 106–131; BP diastolic 55–82
[2020-09-20] MEDS: BLOOD SUGAR DIAGNOSTIC STRIP TEST SCH ×3 (05:36→18:41)
[2020-09-20] MEDS: SODIUM CHLORIDE 0.9% INJ 3ML FLUSH IVF SCH ×3 (05:36→21:20)
[2020-09-20] MEDS: INSULIN LISPRO 100 UNITS/ML SUBCUT SCH ×3 (05:45→18:00)
[2020-09-20 07:47] LABS: BASOPHILS % 1.2 % (0.0-2.0); EOSINOPHILS % 8.2 % (0.0-5.0); LYMPHOCYTES % 21.8 % (20.0-50.0); MEAN CORPUSCULAR HEMOGLOBIN 34.6 pg (28.0-32.0); MEAN CORPUSCULAR VOLUME 100.8 fL (80.0-94.0); MEAN PLATELET VOLUME 9.3 fl (7.4-10.4); MONOCYTES % 9.5 % (2.0-8.0); NEUTROPHILS % 59.3 % (40.0-76.0); PLATELET 247 x1000/uL (130-400); RED BLOOD CELL COUNT 3.17 mill/uL (4.7-6.1); RED CELL DISTRIBUTION WIDTH 15.5 % (11.6-14.6)
[2020-09-20] MEDS: IPRATROPIUM/ALBUTEROL 0.5-3(2.5)MG/3ML NEB HHN SCH (09:26)
[2020-09-20] MEDS: ASPIRIN 325MG TABLET PO SCH (09:40)
[2020-09-20] MEDS: CLOPIDOGREL 75MG TABLET PO SCH (09:40)
[2020-09-20] MEDS: FAMOTIDINE 20MG/2ML VIAL IV SCH (09:41)
[2020-09-20] MEDS: NYSTATIN POWDER 15GM TOP SCH ×2 (09:42→21:07)
[2020-09-20] MEDS: CARVEDILOL 6.25 MG TABLET PO SCH ×2 (09:42→21:00)
[2020-09-20] MEDS: LOSARTAN POTASSIUM 25 MG TABLET PO SCH (09:44)
[2020-09-20] MEDS: ATORVASTATIN CALCIUM 20MG TABLET PO SCH (21:07)
[2020-09-21] VITALS: BP 153/69
[2020-09-21] MEDS: BLOOD SUGAR DIAGNOSTIC STRIP TEST SCH ×4 (00:10→17:53)
[2020-09-21 04:00] VITALS: BP 115/53
[2020-09-21] MEDS: INSULIN LISPRO 100 UNITS/ML SUBCUT SCH ×4 (06:00→17:53)
[2020-09-21] MEDS: SODIUM CHLORIDE 0.9% INJ 3ML FLUSH IVF SCH ×3 (06:44→21:24)
[2020-09-21 06:47] LABS: BASOPHILS % 0.7 % (0.0-2.0); EOSINOPHILS % 7.6 % (0.0-5.0); HEMATOCRIT. 30.1 % (42.0-52.0); HEMOGLOBIN. 10.2 g/dL (14.0-18.0); LYMPHOCYTES % 17.3 % (20.0-50.0); MEAN CORPUSCULAR HEMOGLOBIN 34.2 pg (28.0-32.0); MEAN CORPUSCULAR VOLUME 100.3 fL (80.0-94.0); MEAN PLATELET VOLUME 9.4 fl (7.4-10.4); NEUTROPHILS % 66.4 % (40.0-76.0); PLATELET 268 x1000/uL (130-400); RED CELL DISTRIBUTION WIDTH 15.6 % (11.6-14.6)
[2020-09-21 08:00] VITALS: BP 104/72
[2020-09-21] MEDS: NYSTATIN POWDER 15GM TOP SCH ×2 (09:00→21:18)
[2020-09-21] MEDS ORDERED: ATENOLOL 25MG TABLET PO SCH (09:00)
[2020-09-21] MEDS ORDERED: ATORVASTATIN CALCIUM 10MG TABLET PO SCH (09:00)
[2020-09-21] MEDS: LOSARTAN POTASSIUM 25 MG TABLET PO SCH (09:00)
[2020-09-21] MEDS: CARVEDILOL 6.25 MG TABLET PO SCH ×2 (09:00→21:17)
[2020-09-21] MEDS: FAMOTIDINE 20MG/2ML VIAL IV SCH (09:51)
[2020-09-21] MEDS: CLOPIDOGREL 75MG TABLET PO SCH (09:52)
[2020-09-21] MEDS: ASPIRIN 325MG TABLET PO SCH (09:52)
[2020-09-21] MEDS: DIPHENHYDRAMINE 50MG/ML VIAL IV PRN ×3 (10:02→21:17)
[2020-09-21 12:00] VITALS: BP 124/64
[2020-09-21 16:00] VITALS: BP 134/60
[2020-09-21] MEDS: ATORVASTATIN CALCIUM 20MG TABLET PO SCH (21:17)
[2020-09-22] VITALS: BP 126/54
[2020-09-22] MEDS: BLOOD SUGAR DIAGNOSTIC STRIP TEST SCH ×3 (00:51→12:00)
[2020-09-22] MEDS: DIPHENHYDRAMINE 50MG/ML VIAL IV PRN ×2 (02:36→09:55)
[2020-09-22 04:00] VITALS: BP 120/65
[2020-09-22] MEDS: INSULIN LISPRO 100 UNITS/ML SUBCUT SCH ×3 (06:00→12:00)
[2020-09-22 06:26] LABS: BASOPHILS % 0.9 % (0.0-2.0); EOSINOPHILS % 5.7 % (0.0-5.0); HEMATOCRIT. 30.6 % (42.0-52.0); HEMOGLOBIN. 10.7 g/dL (14.0-18.0); MEAN CORPUSCULAR HEMOGLOBIN 35.2 pg (28.0-32.0); MEAN PLATELET VOLUME 9.5 fl (7.4-10.4); MONOCYTES % 8.1 % (2.0-8.0); NEUTROPHILS % 70.3 % (40.0-76.0); PLATELET 256 x1000/uL (130-400); RED BLOOD CELL COUNT 3.03 mill/uL (4.7-6.1); RED CELL DISTRIBUTION WIDTH 15.5 % (11.6-14.6)
[2020-09-22] MEDS: SODIUM CHLORIDE 0.9% INJ 3ML FLUSH IVF SCH ×2 (06:44→13:17)
[2020-09-22 08:00] VITALS: BP 124/64
[2020-09-22] MEDS: ASPIRIN 325MG TABLET PO SCH (09:51)
[2020-09-22] MEDS: CARVEDILOL 6.25 MG TABLET PO SCH (09:51)
[2020-09-22] MEDS: FAMOTIDINE 20MG/2ML VIAL IV SCH (09:52)
[2020-09-22] MEDS: CLOPIDOGREL 75MG TABLET PO SCH (09:52)
[2020-09-22] MEDS: LOSARTAN POTASSIUM 25 MG TABLET PO SCH (09:52)
[2020-09-22] MEDS: NYSTATIN POWDER 15GM TOP SCH (09:52)
[2020-09-22] MEDS ORDERED: SODIUM CHLORIDE 0.9% 1,000 ML IV ONE (12:30)
[2020-09-22] MEDS ORDERED: SODIUM CHLORIDE 0.9% 1,000 ML IV SCH (12:30)
[2020-09-22] MEDS ORDERED: NOREPINEPHRINE 8 MG in DEXT 5% WATER 242 ML IV PRN (12:30)
[2020-09-22 13:32] LABS: BG CARBOXYHEMOGLOBIN 0.2 % (0.5-1.5); BG DEOXYHEMOGLOBIN 11.1 % (0.0-5.0); BG FRACTION INSPIRED OXYGEN 40; BG HCO3 ACT 19.1 mmol/L (22.0-26.0); BG METHEMOGLOBIN 0.5 % (0.0-1.5); BG OXYGEN SATURATION 88.8 % (92.0-98.5); BG OXYHEMOGLOBIN 88.2 % (94.0-97.0); BG PCO2 28.4 mmHg (35.0-45.0); BG PH 7.445 (7.350-7.450); BG PO2 55.5 mmHg (75.0-100.0); BG SAMPLE SITE RIGHT RADIAL; BG VENT MODE NASAL CANNULA
[2020-09-22] MEDS ORDERED: MORPHINE SULFATE 2 MG/ML CPJ (NOT FOR IM USE) IV NR (13:45)
[2020-09-22] MEDS ORDERED: LORAZEPAM 2MG/ML CPJ IV PRN (13:45)
[2020-09-22] MEDS ORDERED: MORPHINE SULFATE 250 MG in DEXT 5% WATER 225 ML IV PRN (13:45)
[2020-09-22] MEDS ORDERED: ALBUMIN HUMAN 25GM/500ML (5%) IV NR (14:00)
[2020-09-22 16:00] VITALS: BP 116/54
[2020-09-22 20:00] VITALS: BP 124/76
[2020-09-23] VITALS: BP 138/54
[2020-09-23 04:00] VITALS: BP 102/50
[2020-09-23 08:00] VITALS: BP 148/65
[2020-09-23 12:00] VITALS: BP 130/78
[2020-09-23 16:00] VITALS: BP 141/63
[2020-09-23 20:00] VITALS: BP 105/51
[2020-09-24] VITALS: BP 141/53
[2020-09-24 04:00] VITALS: BP 112/70
[2020-09-24 08:00] VITALS: BP 123/65
[2020-09-24 11:48] VITALS: BP 108/39
[2020-09-24 12:00] VITALS: BP 108/39
== END 2020-09-24 13:55 | disposition hospice, home (50) | DRG 61 ==
LOC: ER 11:35 → CVICU 13:44 → EDBEDREQ 13:47 → EDBEDREQSVC 13:47 → ENRESERV 16:35 → 5EST 09-11 01:28 → 3WST 09-14 13:20 → 6EST 09-20 14:57
PROVIDERS: ADMIT Internal Medicine; ATTEND Internal Medicine
PROC: 3E03317 Introduction of Other Thrombolytic into Peripheral Vein, Percutaneous Approach (ICD-10-PCS; 2020-09-09)
PROC: 4A023N7 Measurement of Cardiac Sampling and Pressure, Left Heart, Percutaneous Approach (ICD-10-PCS; principal; 2020-09-14)
PROC: B2111ZZ Fluoroscopy of Multiple Coronary Arteries using Low Osmolar Contrast (ICD-10-PCS; 2020-09-14)
PROC: B2151ZZ Fluoroscopy of Left Heart using Low Osmolar Contrast (ICD-10-PCS; 2020-09-14)
PROC: 05HY33Z Insertion of Infusion Device into Upper Vein, Percutaneous Approach (ICD-10-PCS; 2020-09-14)
PROC: B54MZZA Ultrasonography of Right Upper Extremity Veins, Guidance (ICD-10-PCS; 2020-09-14)
DX: I63.9 Cerebral infarction, unspecified (principal); I21.4 Non-ST elevation (NSTEMI) myocardial infarction; J96.01 Acute respiratory failure with hypoxia; N17.0 Acute kidney failure with tubular necrosis; I50.23 Acute on chronic systolic (congestive) heart failure; J69.0 Pneumonitis due to inhalation of food and vomit; G93.1 Anoxic brain damage, not elsewhere classified; I13.0 Hypertensive heart and chronic kidney disease with heart failure and stage 1 through stage 4 chronic kidney disease, or unspecified chronic kidney disease; I42.9 Cardiomyopathy, unspecified; N39.0 Urinary tract infection, site not specified; I25.10 Atherosclerotic heart disease of native coronary artery without angina pectoris; N18.30 Chronic kidney disease, stage 3 unspecified; E87.5 Hyperkalemia; E78.5 Hyperlipidemia, unspecified; G35 Multiple sclerosis; J45.909 Unspecified asthma, uncomplicated; Z96.649 Presence of unspecified artificial hip joint; F03.90 Unspecified dementia, unspecified severity, without behavioral disturbance, psychotic disturbance, mood disturbance, and anxiety; I25.84 Coronary atherosclerosis due to calcified coronary lesion; X58.XXXA Exposure to other specified factors, initial encounter; L30.4 Erythema intertrigo; N28.89 Other specified disorders of kidney and ureter; S61.412A Laceration without foreign body of left hand, initial encounter; Z51.5 Encounter for palliative care; Z66 Do not resuscitate; Z79.899 Other long term (current) drug therapy; Z99.3 Dependence on wheelchair; Z87.01 Personal history of pneumonia (recurrent); I25.2 Old myocardial infarction; Z87.09 Personal history of other diseases of the respiratory system; Z90.49 Acquired absence of other specified parts of digestive tract; Z88.5 Allergy status to narcotic agent; Y93.89 Activity, other specified; Y92.89 Other specified places as the place of occurrence of the external cause; Y99.8 Other external cause status
CPT/HCPCS: 36415; 36600; 70496; 70551; 71045; 71250; 76770; 76937; 78580; 80048; 80053; 80061; 80320; 81003; 82040; 82375; 82550; 82553; 82805; 82962; 83036; 83721; 83735; 83880; 84100; 84439; 84443; 84484; 85025; 85027; 85379; 86038; 86160; 87426; 92610; 93005; 93306; 93458; 93970; 94640; 95816; 96374; 97110; 97162; 97166; 97530; 97535; 99291; A6261; C1725; C1769; C1887; C1893; C9113; J0360; J1200; J1644; J1650; J1815; J1940; J1956; J2060; J2997; J3010; J3490; J7030; J7040; J7060; P9041; Q9967; U0003; G0480